=== PATIENT | male | born 1965 | race Caucasian/White ===

== ENCOUNTER 2018-09-07 07:12 | Inpatient (IN) ==
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
--- NOTE | 2018-09-07 12:18 | XR ---
EXAM DATE: 09/07/2018 12:14 PM EST AGE/SEX: 53 years / Male INDICATIONS: Evaluate for pneumonia, pneumothorax, or communicable disease. Pre op tibia surgery. Ac nicole fractures of the tibia and fibula. CLINICAL DATA: This is the patient's initial encounter. Patient reports that signs and symptoms have been present for 1 day and indicates a pain score of 0/10. MEDICAL/SURGICAL HISTORY: Asthma. Hypertension. None. COMPARISON: None. FINDINGS: A single AP view of the chest demonstrates the lungs to be symmetrically aerated without evidence of mass, infiltrate or effusion. The cardiomediastinal contours are unremarkable. Osseous structures a re intact. CONCLUSION: No acute cardiopulmonary disease. Electronically signed by: Brian Amaya MD 09/07/2018 12:16 PM EST
[2018-09-07 12:44] LABS: Baso % (Auto) 0.2 % (0.0-2.0); Eos # (Auto) 0.1 th/mm3 (0.0-0.4); Eos % (Auto) 0.8 % (0.0-4.0); Hemoglobin 13.5 gm/dL (13.0-17.0); Lymph # (Auto) 4.7 th/mm3 (1.0-4.8); Mean Corpuscular HGB Conc 33.8 % (32.0-36.0); Mean Corpuscular Hemoglobin 33.7 pg (27.0-34.0); Mean Corpuscular Volume 99.7 fL (80.0-100.0); Mean Platelet Volume 8.4 fL (7.0-11.0); Mono # (Auto) 1.1 th/mm3 (0.0-0.9); Mono % (Auto) 7.7 % (0.0-8.0); Neut # (Auto) 8.2 th/mm3 (1.8-7.7); Neut % (Auto) 58.3 % (16.0-70.0); Platelet Count 575 th/mm3 (150-450); Red Blood Count 4.01 mil/mm3 (4.50-5.90); Red Cell Distribution Width 14.4 % (11.6-17.2); White Blood Count 14.1 th/mm3 (4.0-11.0)
[2018-09-07 12:48] LABS: Activated Partial Thrombo Time 26.7 sec (23.4-31.7); INR 1.1 Ratio; Prothrombin Time 10.9 sec (9.8-11.6)
[2018-09-07 12:52] LABS: Alanine Aminotransferase 105 U/L (12-78); Anion Gap 9 meq/L (5-15); Aspartate Aminotransferase 96 U/L (15-37); Blood Urea Nitrogen 19 mg/dL (7-18); Calcium 9.2 mg/dL (8.5-10.1); Carbon Dioxide 22.1 meq/L (21.0-32.0); Chloride 108 meq/L (98-107); Glomerular Filtration Rate Greater Than 89 mL/min (>89); Glucose,Random 99 mg/dL (74-106); Potassium 4.1 meq/L (3.5-5.1); Sodium 139 meq/L (136-145)
[2018-09-07 12:55] LABS: Alkaline Phosphatase 333 U/L (45-117); Total Protein 8.6 g/dL (6.4-8.2)
[2018-09-07 13:30] LABS: Howell-Jolly Bodies Present
[2018-09-07 13:31] LABS: Platelet Morphology Normal (Normal)
[2018-09-07] MEDS ORDERED: Bisacodyl 10 MG Supp RECTAL PRN (14:41)
[2018-09-07] MEDS ORDERED: Naloxone Inj 0.4 MG/ML Vial IV.PUSH PRN (14:41)
[2018-09-07] MEDS ORDERED: Acetaminophen 325 MG Tablet PO PRN ×2 (14:41)
[2018-09-07] MEDS ORDERED: Dextrose 50% in Water 50 ML Vial IV.PUSH PRN (14:46)
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
[2018-09-07] MEDS: Lisinopril 20 MG Tablet PO SCH (15:35)
[2018-09-07] MEDS: hydroCHLOROthiazide 25 MG Tablet PO SCH (15:35)
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
[2018-09-07] MEDS: Insulin NovoLOG Aspart Correctional Sugar Inj SQ SCH ×2 (18:45→20:48)
[2018-09-07] MEDS: Senna/Docusate Sodium 8.6/50 MG Tablet PO SCH (20:44)
[2018-09-07 21:45] LABS: Amphetamine Screen,Urine Neg (Neg); Barbiturate Screen,Urine Neg (Neg); Cannabinoid Screen,Urine Pos (Neg); Cocaine Screen,Urine Neg (Neg)
[2018-09-07 21:47] LABS: Opiate Screen,Urine Neg (Neg)
[2018-09-08] MEDS ORDERED: Chlorhexidine Gluconate 2% 1 Pack (2 Cloths) TOPICAL ONE (03:15)
[2018-09-08] MEDS ORDERED: Sodium Chlor 0.9% Inj 500 ML IV.CONT ONE (03:15)
[2018-09-08 05:22] LABS: Baso % (Auto) 0.4 % (0.0-2.0); Eos # (Auto) 0.5 th/mm3 (0.0-0.4); Eos % (Auto) 4.1 % (0.0-4.0); Hematocrit 40.1 % (39.0-51.0); Hemoglobin 13.5 gm/dL (13.0-17.0); Lymph # (Auto) 3.4 th/mm3 (1.0-4.8); Lymph % (Auto) 28.6 % (9.0-44.0); Mean Corpuscular HGB Conc 33.6 % (32.0-36.0); Mean Corpuscular Hemoglobin 33.2 pg (27.0-34.0); Mean Corpuscular Volume 98.7 fL (80.0-100.0); Mean Platelet Volume 8.6 fL (7.0-11.0); Mono # (Auto) 1.2 th/mm3 (0.0-0.9); Mono % (Auto) 10.3 % (0.0-8.0); Neut # (Auto) 6.8 th/mm3 (1.8-7.7); Neut % (Auto) 56.6 % (16.0-70.0); Platelet Count 546 th/mm3 (150-450); Red Blood Count 4.06 mil/mm3 (4.50-5.90); Red Cell Distribution Width 13.5 % (11.6-17.2)
[2018-09-08 05:49] LABS: Alanine Aminotransferase 103 U/L (12-78); Albumin 2.8 g/dL (3.4-5.0); Anion Gap 7 meq/L (5-15); Aspartate Aminotransferase 97 U/L (15-37); Blood Urea Nitrogen 17 mg/dL (7-18); Calcium 8.6 mg/dL (8.5-10.1); Carbon Dioxide 25.1 meq/L (21.0-32.0); Chloride 105 meq/L (98-107); Glomerular Filtration Rate Greater Than 89 mL/min (>89); Glucose,Random 102 mg/dL (74-106); Potassium 3.9 meq/L (3.5-5.1); Sodium 137 meq/L (136-145)
[2018-09-08 05:51] LABS: Alkaline Phosphatase 320 U/L (45-117); Total Protein 8.2 g/dL (6.4-8.2)
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
[2018-09-08] MEDS: Lisinopril 20 MG Tablet PO SCH ×2 (08:13→20:59)
[2018-09-08] MEDS: hydroCHLOROthiazide 25 MG Tablet PO SCH (08:13)
[2018-09-08] MEDS: Insulin NovoLOG Aspart Correctional Sugar Inj SQ SCH ×4 (08:14→21:03)
[2018-09-08] MEDS: Senna/Docusate Sodium 8.6/50 MG Tablet PO SCH ×2 (08:14→20:59)
[2018-09-08] MEDS ORDERED: Vancomycin Consult Pharmacy OTHER PRN (08:41)
--- NOTE | 2018-09-08 08:48 | P.PN ---
Subjective Interval history: Follow-up Transverse fracture through the proximal tibia/Mildly comminuted oblique fracture through the mid fibula September 08, 2018-patient seen and examined, afebrile, complain of left postoperative pain. Patient was seen by orthopedic surgery however due to culture positive for gram-positive cocci and gram-negative rods, surgery at this time has been cancelled Physical Exam Vital signs: Vital Signs 09/07/18 09:09 09/07/18 15:36 09/07/18 16:23 Temperature Pulse Rate 98 H Respiratory Rate Blood Pressure 184/96 H 203/119 H 176/99 H Pulse Oximetry 09/07/18 17:00 09/07/18 17:14 09/07/18 19:09 Temperature 97.8 F 98.7 F Pulse Rate 81 70 Respiratory Rate 18 16 19 Blood Pressure 180/106 H 160/97 H Pulse Oximetry 96 96 09/07/18 20:47 09/07/18 23:23 09/08/18 03:43 Temperature 98.4 F 97.9 F Pulse Rate 63 67 Respiratory Rate 19 19 19 Blood Pressure 152/86 H 151/94 H Pulse Oximetry 97 98 Intake & Output 09/07/18 09/08/18 09/08/18 18:59 06:59 18:59 Intake Total 0 / 0 Output Total 975 / 975 Balance -975 / -975 Weight 70.307 kg 70.3 kg Intake: Oral 0 / 0 Output: Urine 975 / 975 Other: Date of Last Bowel Movement 09/07/18 09/07/18 # Bowel Movements 0 Narrative: GENERAL: SKIN: Warm and dry.dressing over Left ankle HEAD: Atraumatic. Normocephalic. EYES: Pupils equal and round. No scleral icterus. No injection or drainage. ENT: No nasal bleeding or discharge. Mucous membranes pink and moist. NECK: Trachea midline. No JVD. CARDIOVASCULAR: Regular rate and rhythm. RESPIRATORY: No accessory muscle use. Clear to auscultation. Breath sounds equal bilaterally. GASTROINTESTINAL: Abdomen soft, non-tender, nondistended. Hepatic and splenic margins not palpable. MUSCULOSKELETAL: Extremities without clubbing, cyanosis, or edema. No obvious deformities. NEUROLOGICAL: Awake and alert. No obvious cranial nerve deficits. Motor grossly within normal limits. Five out of 5 muscle strength in the arms and legs. Normal speech. PSYCHIATRIC: Appropriate mood and affect; insight and judgment normal. Results - Labs CBC & Chem 7: 09/08/18 04:33 09/08/18 04:33 Laboratory Results - last 24 hr 09/07/18 09/07/18 09/07/18 12:20 12:20 12:20 WBC 14.1 H RBC 4.01 L Hgb 13.5 Hct 40.0 MCV 99.7 MCH 33.7 MCHC 33.8 RDW 14.4 Plt Count 575 H MPV 8.4 Prelim Diff (Auto) Slide review pending Neut % (Auto) 58.3 Lymph % (Auto) 33.0 [place] % (Auto) 7.7 Eos % (Auto) 0.8 Baso % (Auto) 0.2 Neut # (Auto) 8.2 H Lymph # (Auto) 4.7 [place] # (Auto) 1.1 H Eos # (Auto) 0.1 Baso # (Auto) 0.0 WBC Differential . Diff Scan Auto diff confirmed Differential Comment . Platelet Estimate High H Platelet Morphology Normal [place] Bodies Present H ESR PT 10.9 INR 1.1 APTT 26.7 Sodium 139 Potassium 4.1 Chloride 108 H Carbon Dioxide 22.1 Anion Gap 9 BUN 19 H Creatinine 0.77 Estimated GFR Greater than 89 POC Glucose Random Glucose 99 Calcium 9.2 Total Bilirubin 0.4 AST 96 H ALT 105 H Alkaline Phosphatase 333 H C-Reactive Protein Total Protein 8.6 H Albumin 3.0 L Urine Opiates Screen Ur Barbiturates Screen Ur Amphetamines Screen U Benzodiazepines Scrn Urine Cocaine Screen U Cannabinoids Screen 09/07/18 09/07/18 09/07/18 12:20 12:20 18:08 WBC RBC Hgb Hct MCV MCH MCHC RDW Plt Count MPV Prelim Diff (Auto) Neut % (Auto) Lymph % (Auto) [place] % (Auto) Eos % (Auto) Baso % (Auto) Neut # (Auto) Lymph # (Auto) [place] # (Auto) Eos # (Auto) Baso # (Auto) WBC Differential Diff Scan Differential Comment Platelet Estimate Platelet Morphology [place] Bodies ESR 10 PT INR APTT Sodium Potassium Chloride Carbon Dioxide Anion Gap BUN Creatinine Estimated GFR POC Glucose 106 Random Glucose Calcium Total Bilirubin AST ALT Alkaline Phosphatase C-Reactive Protein Less than 0.29 Total Protein Albumin Urine Opiates Screen Ur Barbiturates Screen Ur Amphetamines Screen U Benzodiazepines Scrn Urine Cocaine Screen U Cannabinoids Screen 09/07/18 09/07/18 09/08/18 20:47 21:00 04:33 WBC 12.0 H RBC 4.06 L Hgb 13.5 Hct 40.1 MCV 98.7 MCH 33.2 MCHC 33.6 RDW 13.5 Plt Count 546 H MPV 8.6 Prelim Diff (Auto) Neut % (Auto) 56.6 Lymph % (Auto) 28.6 [place] % (Auto) 10.3 H Eos % (Auto) 4.1 H Baso % (Auto) 0.4 Neut # (Auto) 6.8 Lymph # (Auto) 3.4 [place] # (Auto) 1.2 H Eos # (Auto) 0.5 H Baso # (Auto) 0.0 WBC Differential . Diff Scan Differential Comment Auto diff final Platelet Estimate Platelet Morphology [place] Bodies ESR PT INR APTT Sodium Potassium Chloride Carbon Dioxide Anion Gap BUN Creatinine Estimated GFR POC Glucose 131 H Random Glucose Calcium Total Bilirubin AST ALT Alkaline Phosphatase C-Reactive Protein Total Protein Albumin Urine Opiates Screen Neg Ur Barbiturates Screen Neg Ur Amphetamines Screen Neg U Benzodiazepines Scrn Neg Urine Cocaine Screen Neg U Cannabinoids Screen Pos H 09/08/18 09/08/18 04:33 08:10 WBC RBC Hgb Hct MCV MCH MCHC RDW Plt Count MPV Prelim Diff (Auto) Neut % (Auto) Lymph % (Auto) [place] % (Auto) Eos % (Auto) Baso % (Auto) Neut # (Auto) Lymph # (Auto) [place] # (Auto) Eos # (Auto) Baso # (Auto) WBC Differential Diff Scan Differential Comment Platelet Estimate Platelet Morphology [place] Bodies ESR PT INR APTT Sodium 137 Potassium 3.9 Chloride 105 Carbon Dioxide 25.1 Anion Gap 7 BUN 17 Creatinine 0.83 Estimated GFR Greater than 89 POC Glucose 112 H Random Glucose 102 Calcium 8.6 Total Bilirubin 0.3 AST 97 H ALT 103 H Alkaline Phosphatase 320 H C-Reactive Protein Total Protein 8.2 Albumin 2.8 L Urine Opiates Screen Ur Barbiturates Screen Ur Amphetamines Screen U Benzodiazepines Scrn Urine Cocaine Screen U Cannabinoids Screen Microbiology 09/07/18 08:00 Wound - Leg Gram Stain - Final - Imaging Impressions Knee X-Ray 09/07/18 07:50 CONCLUSION: Transverse fracture through the proximal tibia which appears acute to subacute. This lies at the level of the proximal intramedullary julián. Ankle X-Ray 09/07/18 10:33 CONCLUSION: 1. Nondisplaced fracture deformity involving the distal tibia. 2. Partial visualization of a fracture of more mid fibula seen only on the AP view. This is of indeterminate age. 3. Remote postsurgical changes in the tibia with intramedullary julián in place. Tibia/Fibula X-Ray 09/07/18 10:33 CONCLUSION: 1. Mildly comminuted oblique fracture through the mid fibula. There is an apparent nondisplaced fractures of the proximal fibula as well. 2. The known distal tibial fracture is again visualized. Please see left ankle study for further details. Chest X-Ray 09/07/18 11:58 CONCLUSION: No acute cardiopulmonary disease. Assessment and Plan - Plan 53-year-old man with Infecting surgical wound Transverse fracture through the proximal tibia Mildly comminuted oblique fracture through the mid fibula Left knee x-ray with finding of Transverse fracture through the proximal tibia which appears acute to subacute. Tibia/fibula x-ray noting with finding of Mildly comminuted oblique fracture through the mid fibula Orthopedic surgery consulted and input appreciated Pain management accordingly Culture positive for gram-positive cocci and gram-negative julián, therefore will start vancomycin pending ID consult History of diabetes type 2 Continue insulin sliding scale and fingerstick blood glucose monitoring Check hemoglobin A1c Benign labile hypertension Continue hydrochlorothiazide and lisinopril Vasotec as needed History of hepatitis C Chronic, outpatient monitoring Homeless produce manager consulted for discharge disposition Tobacco abuse Tobacco counseling cessation provided On nicotine patch
--- NOTE | 2018-09-08 12:06 | ECG ---
Date Performed: 09/08/2018 Time Performed: 05:22:42 PTAGE: 53 years EKG: Sinus rhythm Left anterior fascicular block Possible inferior infarct - age undetermined Abnormal ECG NO PREVIOUS TRACING DOCTOR: Naveen Arambula Interpretating Date/Time 09/08/2018 12:05:27
[2018-09-08] MEDS: Vancomycin Inj 1,250 MG in Sodium Chlor 0.9% Inj 250 ML IV.SIG SCH (12:21)
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
[2018-09-08] MEDS ORDERED: Temazepam 15 MG Capsule PO PRN (16:21)
[2018-09-08 16:36] LABS: Hemoglobin A1c 5.4 % (4.3-6.0)
[2018-09-09] MEDS: Vancomycin Inj 1,250 MG in Sodium Chlor 0.9% Inj 250 ML IV.SIG SCH ×2 (01:01→11:55)
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
[2018-09-09] MEDS: Insulin NovoLOG Aspart Correctional Sugar Inj SQ SCH ×4 (07:37→22:07)
[2018-09-09] MEDS: Lisinopril 20 MG Tablet PO SCH ×2 (09:05→22:04)
[2018-09-09] MEDS: hydroCHLOROthiazide 25 MG Tablet PO SCH (09:05)
[2018-09-09] MEDS: Senna/Docusate Sodium 8.6/50 MG Tablet PO SCH ×2 (09:06→22:05)
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
[2018-09-09] MEDS: metroNIDAZOLE 500 MG Tablet PO SCH ×2 (13:38→22:05)
[2018-09-09] MEDS: Zolpidem Tartrate 5 MG Tablet PO PRN (22:05)
[2018-09-10] MEDS: Vancomycin Inj 1,250 MG in Sodium Chlor 0.9% Inj 250 ML IV.SIG SCH ×2 (01:04→11:53)
[2018-09-10] MEDS: metroNIDAZOLE 500 MG Tablet PO SCH ×3 (05:49→21:00)
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
[2018-09-10] MEDS: Lisinopril 20 MG Tablet PO SCH ×2 (09:26→20:56)
[2018-09-10] MEDS: Senna/Docusate Sodium 8.6/50 MG Tablet PO SCH ×2 (09:26→20:56)
[2018-09-10] MEDS: hydroCHLOROthiazide 25 MG Tablet PO SCH (09:26)
[2018-09-10] MEDS: Insulin NovoLOG Aspart Correctional Sugar Inj SQ SCH ×4 (09:28→20:56)
[2018-09-10] MEDS ORDERED: Pharmacy Ordered Lab Info OTHER ONE (11:45)
[2018-09-10] MEDS: Zolpidem Tartrate 5 MG Tablet PO PRN (20:58)
[2018-09-11] MEDS: Vancomycin Inj 1,250 MG in Sodium Chlor 0.9% Inj 250 ML IV.SIG SCH ×2 (00:14→11:41)
[2018-09-11] MEDS: metroNIDAZOLE 500 MG Tablet PO SCH ×3 (05:40→22:09)
[2018-09-11 09:35] LABS: Baso # (Auto) 0.1 th/mm3 (0.0-0.2); Baso % (Auto) 1.2 % (0.0-2.0); Eos # (Auto) 0.9 th/mm3 (0.0-0.4); Eos % (Auto) 8.8 % (0.0-4.0); Hematocrit 42.2 % (39.0-51.0); Hemoglobin 14.3 gm/dL (13.0-17.0); Lymph # (Auto) 4.5 th/mm3 (1.0-4.8); Lymph % (Auto) 41.9 % (9.0-44.0); Mean Corpuscular HGB Conc 33.8 % (32.0-36.0); Mean Corpuscular Hemoglobin 33.3 pg (27.0-34.0); Mean Corpuscular Volume 98.5 fL (80.0-100.0); Mean Platelet Volume 8.7 fL (7.0-11.0); Mono # (Auto) 1.1 th/mm3 (0.0-0.9); Neut # (Auto) 4.1 th/mm3 (1.8-7.7); Neut % (Auto) 38.1 % (16.0-70.0); Platelet Count 478 th/mm3 (150-450); Red Blood Count 4.28 mil/mm3 (4.50-5.90); Red Cell Distribution Width 13.7 % (11.6-17.2); White Blood Count 10.7 th/mm3 (4.0-11.0)
[2018-09-11] MEDS: Insulin NovoLOG Aspart Correctional Sugar Inj SQ SCH ×4 (10:01→21:26)
[2018-09-11] MEDS: hydroCHLOROthiazide 25 MG Tablet PO SCH (10:03)
[2018-09-11] MEDS: Lisinopril 20 MG Tablet PO SCH ×2 (10:03→21:24)
[2018-09-11] MEDS: Senna/Docusate Sodium 8.6/50 MG Tablet PO SCH ×2 (10:03→21:24)
[2018-09-11 10:04] LABS: Albumin 2.9 g/dL (3.4-5.0); Anion Gap 9 meq/L (5-15); Aspartate Aminotransferase 84 U/L (15-37); Blood Urea Nitrogen 20 mg/dL (7-18); Calcium 9.1 mg/dL (8.5-10.1); Carbon Dioxide 24.7 meq/L (21.0-32.0); Chloride 103 meq/L (98-107); Glomerular Filtration Rate Greater Than 89 mL/min (>89); Glucose,Random 100 mg/dL (74-106); Potassium 3.8 meq/L (3.5-5.1); Sodium 137 meq/L (136-145)
[2018-09-11 10:05] LABS: Alanine Aminotransferase 95 U/L (12-78)
[2018-09-11 10:07] LABS: Alkaline Phosphatase 283 U/L (45-117); Total Protein 8.4 g/dL (6.4-8.2)
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
[2018-09-11] MEDS: Zolpidem Tartrate 5 MG Tablet PO PRN (22:13)
[2018-09-12] MEDS: Vancomycin Inj 1,250 MG in Sodium Chlor 0.9% Inj 250 ML IV.SIG SCH ×2 (00:04→13:03)
[2018-09-12] MEDS: metroNIDAZOLE 500 MG Tablet PO SCH ×3 (05:11→21:09)
--- NOTE | 2018-09-12 07:44 | P.PNOP ---
Subjective Interval history: s/p left tibial nail and proximal tibia fracture with multiple wounds no changes. states continues to have pain Physical Exam Vital signs: Vital Signs 09/11/18 08:00 09/11/18 16:00 09/11/18 20:00 Temperature 97.8 F 97.7 F 98.2 F Pulse Rate 95 H 69 71 Respiratory Rate 16 16 18 Blood Pressure 143/79 H 137/82 149/105 H Pulse Oximetry 98 97 95 09/12/18 00:00 Temperature 98.2 F Pulse Rate 78 Respiratory Rate 16 Blood Pressure 139/81 Pulse Oximetry 95 Intake & Output 09/11/18 09/12/18 09/12/18 18:59 06:59 18:59 Intake Total 262.5 / 262.5 1702.5 / 1702.5 Output Total 700 / 700 Balance 262.5 / 262.5 1002.5 / 1002.5 Weight 69.9 kg Intake: IV 262.5 / 262.5 262.5 / 262.5 Vancomycin Inj 1,250 MG In NS 262.5 / 262.5 262.5 / 262.5 Inj 250 ML @ 250 mls/hr IV.SIG Q12H CM Rx#:[id number] Oral 1440 / 1440 Output: Urine 700 / 700 Other: # Voids 7 Date of Last Bowel Movement 09/10/18 09/11/18 # Bowel Movements 1 Narrative: LLE: dressings clean and dry. intact. NVI. +CKS. Results - Labs CBC & Chem 7: 09/11/18 07:55 09/11/18 07:55 Laboratory Results - last 24 hr 09/11/18 09/11/18 09/11/18 07:55 07:55 08:25 WBC 10.7 RBC 4.28 L Hgb 14.3 Hct 42.2 MCV 98.5 MCH 33.3 MCHC 33.8 RDW 13.7 Plt Count 478 H MPV 8.7 Neut % (Auto) 38.1 Lymph % (Auto) 41.9 [place] % (Auto) 10.0 H Eos % (Auto) 8.8 H Baso % (Auto) 1.2 Neut # (Auto) 4.1 Lymph # (Auto) 4.5 [place] # (Auto) 1.1 H Eos # (Auto) 0.9 H Baso # (Auto) 0.1 WBC Differential . Differential Comment Auto diff final Sodium 137 Potassium 3.8 Chloride 103 Carbon Dioxide 24.7 Anion Gap 9 BUN 20 H Creatinine 0.81 Estimated GFR Greater than 89 POC Glucose 114 H Random Glucose 100 Calcium 9.1 Total Bilirubin 0.4 AST 84 H ALT 95 H Alkaline Phosphatase 283 H Total Protein 8.4 H Albumin 2.9 L 09/11/18 09/11/18 09/11/18 11:40 17:03 21:26 WBC RBC Hgb Hct MCV MCH MCHC RDW Plt Count MPV Neut % (Auto) Lymph % (Auto) [place] % (Auto) Eos % (Auto) Baso % (Auto) Neut # (Auto) Lymph # (Auto) [place] # (Auto) Eos # (Auto) Baso # (Auto) WBC Differential Differential Comment Sodium Potassium Chloride Carbon Dioxide Anion Gap BUN Creatinine Estimated GFR POC Glucose 100 130 H 135 H Random Glucose Calcium Total Bilirubin AST ALT Alkaline Phosphatase Total Protein Albumin Assessment and Plan - Assessment and Plan 53 year old male with prior left open distal tibia/fibula fractures on 08/17/18 now with proximal tibia fracture above intramedullary nail Plan: -Nonweightbearing left lower extremity - knee immobilizer -Daily dressing changes with bacitracin and Adaptic, 4 x 4's and Prince wrap -Infectious disease to manage IV antibiotics -Smoking cessation and wound complications are discussed concerning his left lower extremity and complications that can occur also from diabetes. If the infections continues to worsen, he has a high risk of future amputation.
[2018-09-12] MEDS: Insulin NovoLOG Aspart Correctional Sugar Inj SQ SCH ×4 (08:33→21:07)
[2018-09-12] MEDS: Lisinopril 20 MG Tablet PO SCH ×2 (08:34→21:09)
[2018-09-12] MEDS: Senna/Docusate Sodium 8.6/50 MG Tablet PO SCH ×2 (08:34→21:09)
[2018-09-12] MEDS: hydroCHLOROthiazide 25 MG Tablet PO SCH (08:34)
--- NOTE | 2018-09-12 11:40 | P.PNIM ---
Subjective Interval history: Patient states his pain is adequately controlling received Toradol doses. Is glad that this medication is an anti-inflammatory will help with his left swelling and pain. He has no new complaints today. Physical Exam Vital signs: Last Vital Signs Temp 98.2 F 09/12/18 08:00 Pulse 69 09/12/18 08:00 Resp 15 09/12/18 08:00 BP 130/80 09/12/18 08:00 Pulse Ox 94 L 09/12/18 08:00 Intake & Output 09/10/18 09/11/18 09/12/18 09/13/18 06:59 06:59 06:59 06:59 Intake Total 1205.0 / 1205.0 1005.0 / 1005.0 1965.0 / 1965.0 Output Total 800 / 800 800 / 800 700 / 700 Balance 405.0 / 405.0 205.0 / 205.0 1265.0 / 1265.0 Weight 70 kg 70.3 kg 69.9 kg Narrative: GENERAL: AAOx3, no acute distress SKIN: Warm and dry. No rashes HEAD: Atruamtic, normocephalic. EYES: No scleral icterus. No injection or drainage. ENT: Moist mucous membranes, patent nares, no erythema of oropharynx. NECK: Supple, trachea midline. No JVD or lymphadenopathy. Normal thyroid. CARDIOVASCULAR: Regular rate and rhythm. No murmurs, gallops, or rubs. RESPIRATORY: Breath sounds clear equal bilaterally. No crackles or wheezes. No accessory muscle use. GASTROINTESTINAL: Abdomen soft, non-tender, nondistended, normal active bowel sounds MUSCULOSKELETAL: Left leg in straight splint, left ankle swelling NEURO: CN II-XII grossly intact, no focal deficits, no slurring of speech Results Labs CBC & Chem 7: 09/11/18 07:55 09/11/18 07:55 Assessment and Plan (1) Wound infection: Code(s): T14.8XXA - Other injury of unspecified body region, initial encounter; L08.9 - Local infection of the skin and subcutaneous tissue, unspecified Status: Acute Plan Left open distal tibia/fibula fractures on 08/17/18 now with proximal tibia fracture above intramedullary nail New left knee x-ray with finding of Transverse fracture through the proximal tibia Tibia/fibula x-ray noting with finding of Mildly comminuted oblique fracture through the mid fibula Continue with nonweightbearing, continue Toradol and [place] for pain management Appreciate orthopedic surgery consulting Surgical wound infection Wound on left ankle was infected on admission, cultures were positive for MRSA Continue vancomycin Appreciate infectious disease consult Type 2 diabetes Continue insulin sliding scale and routine Accu-Cheks Recent hemoglobin A1c was 5.4 Diabetic diet Hypertension Continue HCTZ and lisinopril; IV Vasotec as needed History of hepatitis C Chronic, outpatient monitoring Dental lloyd/fracture, tooth pain Viscous lidocaine ordered for topical application Patient will follow outpatient with dentist Tobacco abuse Patient counseled to quit smoking Continue nicotine patch DVT prophylaxis Ambulation with PT, SCDs Discharge planning Patient is requiring IV antibiotics and is homeless without insurance coverage, difficult discharge
[2018-09-12] MEDS: Ketorolac Inj 30 MG/ML (IVP) Vial IV.PUSH PRN (13:04)
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
--- NOTE | 2018-09-12 15:45 | P.DCO ---
Post Hospital Infusion Therapy - Infusion Therapy Location of Infusion Therapy: Ambulatory Infusion Therapy Order - Patient Information Patient Weight: 69.9 kg - Administer Medication Daptomycin Additional Dosing Instructions: 560 mg IV every 24 hours Stop Treatment: 10/19/18 - Additional Information Venous Access: PICC Line Additional Instructions: [x] Peripheral flush and dressing changes per protocol [x] Implanted port and central commercial lines account assistant: * Implanted port: 10 ml Normal Saline followed by 5 ml Heparin 100 units/ml Heparin flush after each use and monthly to maintain. [] May leave port accessed during therapy. [] May leave peripheral site accessed for duration of therapy. [x] If patient has SOB or respiratory distress, check oxygen saturation. If less than 90% or clinical signs of respiratory distress, administer oxygen at 2 L/min. via nasal cannula and notify physician. [x] Anaphylaxis/Reaction orders: * Stop infusion. * Keep IV line open with saline flush. * Notify physician. * Monitor vital signs every 15 minutes until symptoms resolve. * Check Oxygen saturation; Oxygen at 2 L/min. via nasal cannula if less than 90% or clinical signs of respiratory distress. * Administer diphenhydramine (Benadryl) 25 mg IV STAT, (unless patient has received as pre-med). May repeat once, if necessary. * Solu-Cortef 250 mg IVP over 30-60 seconds, use 100 mg vials for each dissolution. * Epinephrine (1mg/1 ml) 0.3 mg subcutaneously or IVP now with any signs of respiratory distress. * Check with physician for new additional pre-med orders if patient is re- challenged or re-treated. [x] May remove PICC line when treatment complete, after confirming with Physician. [x] If the patient is admitted to the hospital, the ED, or transferred via [facility] , complete transfer form including medication reconciliation order sheet. Weekly Labs: BMP, Serum CK Levels - Case Management Consult Case Management Consult-IVF: Yes - Patient Information Allergies No Known Allergies Allergy (Verified 09/05/18 07:22)
[2018-09-12] MEDS ORDERED: SODIUM CHLOR 0.9% IV.SIG SCH (18:00)
[2018-09-12] MEDS ORDERED: DAPTOMYCIN IV.SIG SCH (18:00)
[2018-09-12] MEDS: Zolpidem Tartrate 5 MG Tablet PO PRN (22:20)
[2018-09-13] MEDS: metroNIDAZOLE 500 MG Tablet PO SCH ×2 (05:43→15:06)
[2018-09-13] MEDS: Insulin NovoLOG Aspart Correctional Sugar Inj SQ SCH ×3 (07:51→16:12)
[2018-09-13] MEDS: hydroCHLOROthiazide 25 MG Tablet PO SCH (08:00)
[2018-09-13] MEDS: Senna/Docusate Sodium 8.6/50 MG Tablet PO SCH (08:00)
[2018-09-13] MEDS: Lisinopril 20 MG Tablet PO SCH (08:00)
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
[2018-09-13] MEDS: Ketorolac Inj 30 MG/ML (IVP) Vial IV.PUSH PRN (11:20)
[2018-09-13 12:28] VITALS: O2SAT 95
[2018-09-13] MEDS ORDERED: Heparin Central Flush 100 UNIT/ML 5 ML Vial IV.FLUSH PRN (14:21)
[2018-09-13] MEDS ORDERED: DAPTOMYCIN IV.SIG SCH (16:00)
[2018-09-13] MEDS ORDERED: SODIUM CHLOR 0.9% IV.SIG SCH (16:00)
[2018-09-13 16:43] VITALS: RESP 18
[2018-09-13 17:23] VITALS: BP 162/99; PULSE 72; TEMP 98
[2018-09-14] MEDS ORDERED: Heparin Central Flush 100 UNIT/ML 5 ML Vial IV.FLUSH SCH (09:00)
== END 2018-09-13 17:47 | disposition home or self-care (01) | DRG 561 ==
LOC: NEPB 07:12 → NEDA 07:12 → N06 16:43 → N07 09-08 16:10
PROVIDERS: ADMIT Family Medicine; ATTEND Family Medicine
DX: Z79.899 Other long term (current) drug therapy; Z59.0 Homelessness; S82.302G Unspecified fracture of lower end of left tibia, subsequent encounter for closed fracture with delayed healing; Z79.891 Long term (current) use of opiate analgesic; D72.829 Elevated white blood cell count, unspecified; S82.435 Nondisplaced oblique fracture of shaft of left fibula; K02.9 Dental caries, unspecified; T84.623A Infection and inflammatory reaction due to internal fixation device of left tibia, initial encounter; E11.9 Type 2 diabetes mellitus without complications; B18.2 Chronic viral hepatitis C; F17.210 Nicotine dependence, cigarettes, uncomplicated; S82.832G Other fracture of upper and lower end of left fibula, subsequent encounter for closed fracture with delayed healing; Z71.6 Tobacco abuse counseling; B95.62 Methicillin resistant Staphylococcus aureus infection as the cause of diseases classified elsewhere; Z79.51 Long term (current) use of inhaled steroids; F12.90 Cannabis use, unspecified, uncomplicated
CPT/HCPCS: 36569; 71010; 71045; 73564; 73590; 73610; 76937; 80053; 80202; 80307; 82948; 82962; 83036; 85025; 85610; 85651; 85652; 85730; 86140; 86403; 87070; 87081; 87147; 87181; 87185; 87186; 87205; 93005; 97110; 97116; 97162; 99285; C9124; J0696; J0878; J1815; J1885; J3370; J7050; L1830